=== PATIENT | female | born 1980 | race Asian ===

== ENCOUNTER 2022-02-08 15:44 | Emergency (ER) | payer BC, MEDICAID ==
[~2022-02-08] VITALS: Ht 149.9 cm; Wt 54.5 kg
[2022-02-08] MEDS ORDERED: IBUPROFEN 600 MG TABLET PO ONE (17:45)
[2022-02-08 18:59] VITALS: BP 138/79
[2022-02-08] MEDS ORDERED: IBUP-2070 PO (19:02)
== END 2022-02-08 19:20 | disposition home or self-care (01) ==
LOC: EMS 15:53
DX: R07.89 Other chest pain (principal); Y04.8XXA Assault by other bodily force, initial encounter; Y93.89 Activity, other specified; Y92.89 Other specified places as the place of occurrence of the external cause; Y99.8 Other external cause status
CPT/HCPCS: 71046; 93005; 99283